=== PATIENT | female | born 1960 | race Caucasian/White ===

== ENCOUNTER → 2016-10-19 08:40 | Outpatient (CLI) | payer MEDICAID ==
[~2016-10-19 08:40] MED LIST: AMBIEN10 MG PO; HYDROCODONE-APA1 TAB PO; KLONOPIN0.5 MG PO; OYSCO 500+D TAB1 TAB PO; PROTONIX40 MG PO
[2016-10-19 09:58] LABS: BASOPHILS 1.1 % (0.0-2.0); EOSINOPHILS 2.3 % (0-7); HEMATOCRIT 43.8 % (36.0-48.0); IMMATURE GRANULOCYTES 0.2 % (0-5); MCH 31.8 pg (26.0-34.0); MCHC 34.2 g/dL (31.0-37.0); MCV 92.8 fL (80.0-100.0); MEAN PLATELET VOLUME 9.9 fL (7.4-10.4); MONOCYTES 10.4 % (2-11); RBC 4.72 10x6/uL (4.00-5.40); RDW 12.3 % (11.5-14.5); WBC 4.7 10x3/uL (4.8-10.8)
[2016-10-19 10:13] LABS: PLATELET COUNT 248 10x3/uL (130-400)
[2016-10-19 10:24] LABS: ALBUMIN 4.1 g/dL (3.4-5.0); ALKALINE PHOSPHATASE 82 U/L (46-116); ALT (SGPT) 64 U/L (10-68); BILIRUBIN - TOTAL 0.42 mg/dL (0.2-1.3); CALC OSMOLALITY 280 mosm/kg (275-300); CALCIUM 8.6 mg/dL (8.5-10.1); CARBON DIOXIDE 28.6 mmol/L (21.0-32.0); CHLORIDE - SERUM 104 mmol/L (98-107); CREATININE - SERUM 0.8 mg/dL (0.6-1.3); GLUCOSE 104 mg/dL (74-106); POTASSIUM - SERUM 4.6 mmol/L (3.5-5.1); PROTEIN - SERUM 7.2 g/dL (6.4-8.2); SODIUM 141 mmol/L (136-145); UREA NITROGEN 13 mg/dL (7-18); eGFR NON AFRICAN AMERICAN 78 mL/min (90-120)
[2016-11-19 06:50] VITALS: BMI 23.4
== END | disposition home or self-care (01) ==
LOC: D.RAD 08:30 → D.US 09:00 → D.NM 09:30
PROVIDERS: Internal Medicine Gastroenterology
DX: R10.11 Right upper quadrant pain (principal); R11.2 Nausea with vomiting, unspecified; R53.83 Other fatigue; R94.5 Abnormal results of liver function studies

== ENCOUNTER 2016-11-19 06:04 | Day surgery (SDC) | payer MEDICAID ==
[~2016-11-19] VITALS: Ht 160 cm; Wt 59.9 kg
[~2016-11-19 06:04] MED LIST changes: -HYDROCODONE-APA1 TAB PO
[2016-11-19 06:45] LABS: BASOPHILS 0.7 % (0.0-2.0); EOSINOPHILS 4.4 % (0-7); HEMATOCRIT 44.1 % (36.0-48.0); HEMOGLOBIN 14.9 g/dL (12-16); IMMATURE GRANULOCYTES 0.2 % (0-5); MCH 31.6 pg (26.0-34.0); MCHC 33.8 g/dL (31.0-37.0); MCV 93.6 fL (80.0-100.0); MONOCYTES 13.3 % (2-11); NEUTROPHILS 46.4 % (40-80); PLATELET COUNT 223 10x3/uL (130-400); RBC 4.71 10x6/uL (4.00-5.40); RDW 12.3 % (11.5-14.5); WBC 4.1 10x3/uL (4.8-10.8)
[2016-11-19 06:50] VITALS: BP 125/75; Ht 160 cm; Wt 59.9 kg
[2016-11-19 07:01] LABS: CALC OSMOLALITY 279 mosm/kg (275-300); CARBON DIOXIDE 26.6 mmol/L (21.0-32.0); CHLORIDE - SERUM 105 mmol/L (98-107); CREATININE - SERUM 0.7 mg/dL (0.6-1.3); GLUCOSE 107 mg/dL (74-106); POTASSIUM - SERUM 3.6 mmol/L (3.5-5.1); SODIUM 141 mmol/L (136-145); UREA NITROGEN 9 mg/dL (7-18); eGFR NON AFRICAN AMERICAN > 90 mL/min (90-120)
[2016-11-19] MEDS ORDERED: HYDROCODONE-APA1 TAB PO (10:35)
--- NOTE | 2016-11-19 13:21 | OP ---
PATIENT NAME: KORIN JOSE MEDICAL RECORD: [id number] :56 LOCATION:D.OPS ADMISSION DATE: SURGEON: FIDEL HERNANDEZ MD DATE OF OPERATION: 11/19/2016 PREOPERATIVE DIAGNOSES: 1. Biliary dyskinesia. 2. Tobacco dependence syndrome. POSTOPERATIVE DIAGNOSES: 1. Biliary dyskinesia. 2. Tobacco dependence syndrome. PROCEDURE: Laparoscopic cholecystectomy. SURGEON: Fidel Hernandez MD REPORT OF PROCEDURE: The patient's abdomen was prepped and draped in sterile fashion. A cutdown was made on the superior aspect of the umbilicus, 0 Vicryls were placed in the fascia bilaterally and the fascia was incised with 15-blade. I then bluntly entered the peritoneal cavity and placed a 12-mm Brandy port. Under direct visualization, a 5 mm trocar was placed in the epigastrium and two more 5 mm trocars were placed in the right subcostal region. The gallbladder had no sign of inflammatory changes. The cystic artery and cystic duct were dissected free. These were clipped proximally and distally and ligated in standard fashion. The gallbladder was then taken off the liver bed using electrocautery and placed into the right upper quadrant. Any bleeding from the liver bed was then treated with electrocautery. The ports and insufflation were then removed and the gallbladder was taken out through the umbilicus. The umbilical fascia was closed with interrupted 0 Vicryls times 3. The wounds were irrigated out with normal saline and infused with 10 mL of 0.25% Marcaine with epinephrine. The skin incisions were all closed with subcutaneous 5-0 Monocryl and dressed appropriately. COMPLICATIONS: None. CONDITION: Stable. ANESTHESIA: General endotracheal and local. BLOOD LOSS: Minimal. TRANSINT:[id number] Voice Confirmation ID: [id number] DOCUMENT ID: [id number] FIDEL HERNANDEZ MD at 1321 CC: JERAD CLAYTON MD and KIYA DELUCA DO [id number] DICTATION DATE: 11/19/16 1041 AMMONIUM HYDROXIDE OPERATOR: 11/19/16 1237 [facility] [address] [place] [address]
== END 2016-11-19 12:20 | disposition home or self-care (01) ==
LOC: D.OPS 06:04 → D.PAN 16:00 → D.OPS 16:00
PROVIDERS: Surgery
DX: K82.8 Other specified diseases of gallbladder (principal); F17.200 Nicotine dependence, unspecified, uncomplicated

== ENCOUNTER 2017-02-06 09:22 | Emergency (ER) | payer OTHER ==
[2016-11-19 06:50] VITALS: BMI 23.4
[~2017-02-06 09:22] MED LIST changes: +HYDROCODONE-APA1 TAB PO
[2017-02-06 09:48] LABS: BASOPHILS 0.8 % (0-2); EOSINOPHILS 2.4 % (0-7); HEMATOCRIT 45.2 % (36.0-48.0); HEMOGLOBIN 15.5 g/dL (12-16); IMMATURE GRANULOCYTES 0.2 % (0-5); LYMPHOCYTES 28.3 % (15-50); MCH 31.8 pg (26.0-34.0); MCHC 34.3 g/dL (31.0-37.0); MCV 92.6 fL (80.0-100.0); MEAN PLATELET VOLUME 9.7 fL (7.4-10.4); MONOCYTES 12.4 % (2-11); NEUTROPHILS 55.9 % (40-80); PLATELET COUNT 263 10x3/uL (130-400); RBC 4.88 10x6/uL (4.00-5.40); RDW 12.9 % (11.5-14.5); WBC 6.4 10x3/uL (4.8-10.8)
[2017-02-06 09:57] LABS: AMORPHOUS SEDIMENT >1+ /lpf (NONE SEEN); APPEARANCE SLT CLOUDY (CLEAR); BACTERIA MODERATE /hpf (NONE SEEN); BILIRUBIN NEGATIVE (NEGATIVE); COLOR YELLOW (YELLOW); EPITHELIAL CELLS 0-5 /hpf (0-5); GLUCOSE NEGATIVE (NEGATIVE); KETONE SMALL mg/dL (NEGATIVE); LEUKOCYTE ESTERASE NEGATIVE (NEGATIVE); MUCUS <1+ /lpf (NONE SEEN); NITRITE NEGATIVE (NEGATIVE); PROTEIN NEGATIVE (NEGATIVE); RED CELLS - URINE 25-50 /hpf (0-5); UROBILINOGEN NORMAL (NORMAL); WHITE CELLS - URINE 0-5 /hpf (0-5)
[2017-02-06 10:00] LABS: ALBUMIN 4.2 g/dL (3.4-5.0); ANION GAP 20.3 mmol/L (8-16); BILIRUBIN - TOTAL 0.62 mg/dL (0.2-1.3); CALCIUM 9.8 mg/dL (8.5-10.1); CARBON DIOXIDE 21.2 mmol/L (21.0-32.0); POTASSIUM - SERUM 3.5 mmol/L (3.5-5.1); PROTEIN - SERUM 7.8 g/dL (6.4-8.2)
[2017-02-06 10:04] LABS: HCG SERUM NEGATIVE (NEGATIVE)
== END 2017-02-06 12:03 | disposition home or self-care (01) ==
LOC: D.ER 09:22
PROVIDERS: Emergency Medicine
DX: N23 Unspecified renal colic (principal); F17.200 Nicotine dependence, unspecified, uncomplicated

== ENCOUNTER 2017-02-11 11:27 | Emergency (ER) | payer OTHER ==
[2016-11-19 06:50] VITALS: BMI 23.4
[2017-02-11 12:17] LABS: BASOPHILS 0.7 % (0-2); EOSINOPHILS 0.9 % (0-7); HEMATOCRIT 42.2 % (36.0-48.0); HEMOGLOBIN 14.4 g/dL (12-16); LYMPHOCYTES 23.1 % (15-50); MCH 31.9 pg (26.0-34.0); MCHC 34.1 g/dL (31.0-37.0); MCV 93.4 fL (80.0-100.0); MEAN PLATELET VOLUME 9.4 fL (7.4-10.4); MONOCYTES 6.9 % (2-11); NEUTROPHILS 68.4 % (40-80); PLATELET COUNT 246 10x3/uL (130-400); RBC 4.52 10x6/uL (4.00-5.40); WBC 4.5 10x3/uL (4.8-10.8)
[2017-02-11 12:35] LABS: ALBUMIN 3.5 g/dL (3.4-5.0); ALKALINE PHOSPHATASE 85 U/L (46-116); ALT (SGPT) 53 U/L (10-68); CALC OSMOLALITY 283 mosm/kg (275-300); CARBON DIOXIDE 27.6 mmol/L (21.0-32.0); CHLORIDE - SERUM 104 mmol/L (98-107); GLUCOSE 159 mg/dL (74-106); POTASSIUM - SERUM 3.3 mmol/L (3.5-5.1); SODIUM 141 mmol/L (136-145); UREA NITROGEN 12 mg/dL (7-18); eGFR NON AFRICAN AMERICAN 60 mL/min (90-120)
[2017-02-11 12:41] LABS: CREATINE KINASE 84 UL (21-215); TROPONIN-I < 0.017 ng/mL (0.000-0.060)
[2017-02-11 14:11] LABS: APPEARANCE CLEAR (CLEAR); BILIRUBIN NEGATIVE (NEGATIVE); COLOR YELLOW (YELLOW); GLUCOSE NEGATIVE (NEGATIVE); KETONE NEGATIVE (NEGATIVE); LEUKOCYTE ESTERASE NEGATIVE (NEGATIVE); NITRITE NEGATIVE (NEGATIVE); PROTEIN NEGATIVE (NEGATIVE); SPECIFIC GRAVITY 1.015 (1.005-1.020); UROBILINOGEN NORMAL (NORMAL)
== END 2017-02-11 15:45 | disposition home or self-care (01) ==
LOC: D.ER 11:27
PROVIDERS: Emergency Medicine; Nurse Practitioner Family
DX: R53.1 Weakness (principal); R07.89 Other chest pain; F17.200 Nicotine dependence, unspecified, uncomplicated

== ENCOUNTER → 2017-02-23 19:35 | Outpatient (CLI) | payer OTHER ==
[2016-11-19 06:50] VITALS: BMI 23.4
== END | disposition home or self-care (01) ==
LOC: D.SLEEP 19:35
DX: G47.33 Obstructive sleep apnea (adult) (pediatric) (principal)

== ENCOUNTER 2018-09-26 18:25 | Emergency (ER) | payer OTHER ==
[~2018-09-26] VITALS: Ht 160 cm; Wt 61.4 kg
[2018-09-26 18:35] VITALS: Ht 160 cm; Wt 61.4 kg
[2018-09-26] MEDS ORDERED: TORADOL10 MG PO (21:26)
[2018-09-26 22:07] VITALS: BP 150/100
== END 2018-09-26 22:11 | disposition home or self-care (01) ==
LOC: D.ER 18:25
DX: S60.212A Contusion of left wrist, initial encounter (principal); S30.0XXA Contusion of lower back and pelvis, initial encounter; S40.012A Contusion of left shoulder, initial encounter; W18.30XA Fall on same level, unspecified, initial encounter; Y93.89 Activity, other specified; Y92.89 Other specified places as the place of occurrence of the external cause

== ENCOUNTER → 2018-09-29 15:24 | Outpatient (CLI) | payer OTHER ==
[2018-09-26 18:35] VITALS: BMI 23.9
[~2018-09-29 15:24] MED LIST changes: +TORADOL10 MG PO
== END | disposition home or self-care (01) ==
LOC: D.MRI 15:24
DX: M54.5 Low back pain (principal)

== ENCOUNTER → 2018-10-09 14:50 | Outpatient (CLI) | payer OTHER ==
[2018-09-26 18:35] VITALS: BMI 23.9
== END | disposition home or self-care (01) ==
LOC: D.RAD 14:50
DX: M54.2 Cervicalgia (principal)

== ENCOUNTER → 2019-01-10 08:30 | Outpatient (CLI) | payer OTHER ==
[2018-09-26 18:35] VITALS: BMI 23.9
[~2019-01-10 08:30] MED LIST changes: +LIPITOR10 MG PO; +METOPROLOL TART25 MG PO; +ULTRAM50 MG PO
== END | disposition home or self-care (01) ==
LOC: D.MRI 08:30
PROVIDERS: ATTEND Pain Medicine Interventional Pain Medicine
DX: M47.892 Other spondylosis, cervical region (principal); M46.82 Other specified inflammatory spondylopathies, cervical region

== ENCOUNTER 2019-01-10 13:07 | Observation (INO) | payer OTHER ==
[~2019-01-10] VITALS: Ht 160 cm; Wt 62.7 kg
[2019-01-10 13:07] VITALS: BP 123/81
[~2019-01-10 13:07] MED LIST changes: -LIPITOR10 MG PO; -METOPROLOL TART25 MG PO; -ULTRAM50 MG PO
[2019-01-10 13:44] LABS: BASOPHILS 0.7 % (0-2); EOSINOPHILS 1.6 % (0-7); HEMATOCRIT 43.4 % (36.0-48.0); HEMOGLOBIN 15.3 g/dL (12-16); IMMATURE GRANULOCYTES 0.1 % (0-5); LYMPHOCYTES 25.6 % (15-50); MCH 32.1 pg (26.0-34.0); MCHC 35.3 g/dL (31.0-37.0); MEAN PLATELET VOLUME 9.4 fL (7.4-10.4); MONOCYTES 8.1 % (2-11); NEUTROPHILS 63.9 % (40-80); PLATELET COUNT 218 10x3/uL (130-400); RBC 4.77 10x6/uL (4.00-5.40); RDW 12.7 % (11.5-14.5); WBC 6.7 10x3/uL (4.8-10.8)
[2019-01-10 13:54] LABS: ALKALINE PHOSPHATASE 86 U/L (46-116); ALT (SGPT) 27 U/L (10-68); BILIRUBIN - TOTAL 0.41 mg/dL (0.2-1.3); CALC OSMOLALITY 281 mosm/kg (275-300); CALCIUM 9.3 mg/dL (8.5-10.1); CARBON DIOXIDE 22.6 mmol/L (21.0-32.0); CHLORIDE - SERUM 103 mmol/L (98-107); CREATININE - SERUM 0.9 mg/dL (0.6-1.3); GLUCOSE 123 mg/dL (74-106); POTASSIUM - SERUM 3.6 mmol/L (3.5-5.1); PROTEIN - SERUM 7.4 g/dL (6.4-8.2); SODIUM 141 mmol/L (136-145); UREA NITROGEN 13 mg/dL (7-18); eGFR NON AFRICAN AMERICAN 68 mL/min (90-120)
[2019-01-10 14:00] VITALS: BP 158/84
[2019-01-10 14:01] LABS: APTT 21.8 SECONDS (22.8-39.4); PROTIME 12.7 SECONDS (11.6-15.0)
[2019-01-10 14:05] LABS: CKMB 1.9 U/L (0.0-3.6); CREATINE KINASE 120 UL (21-215); MAGNESIUM - SERUM 1.6 mg/dL (1.8-2.4); TROPONIN-I < 0.017 ng/mL (0.000-0.060)
[2019-01-10 14:30] VITALS: BP 148/74
--- NOTE | 2019-01-10 15:20 | NUR ---
NEW ADMIT FROM ER. SIMONAINTED TO ROOM. CALL LIGHT IN REACH. WILL CONT. PLAN OF CARE.
[2019-01-10] MEDS ORDERED: METOPROLOL TART25 MG PO (15:22)
[2019-01-10] MEDS ORDERED: ULTRAM50 MG PO (15:25)
[2019-01-10] MEDS ORDERED: LIPITOR10 MG PO (15:25)
[2019-01-10 15:41] VITALS: BP 141/82; BMI 24.5
--- NOTE | 2019-01-10 19:39 | NUR ---
RESUMING PATIENT CARE. PATIENT IS ALERT AND ORIENTED, RESTING COMFORTABLY IN BED. RESPIRATIONS ARE EVEN AND UNLABORED. NEEDS MET. NO S/S OF DISTRESS. NO C/O PAIN. CALL LIGHT WITHIN REACH. WILL CPOC.
[2019-01-10 20:00] VITALS: BP 103/60
[2019-01-10 22:42] VITALS: BP 164/97
[2019-01-11 04:30] VITALS: BP 112/67
--- NOTE | 2019-01-11 07:25 | NUR ---
RECEIVED PT IN BED AAOX4 RESP UNLABORED SKIN W/D COLOR WNL DENIES ANY PAIN OR NEEDS AT THIS TIME STATES FEELS MUCH BETTER THIS MORNING
[2019-01-11 08:43] VITALS: BP 125/79
[2019-01-11 11:40] VITALS: BP 114/69; Ht 160 cm; Wt 62.7 kg
--- NOTE | 2019-01-11 12:15 | NUR ---
REVIEWED DISCHARGE INSTRUCTIONS WITH PT STATES UNDERSTANDING COPY GIVEN DCD SALINE LOCK TO LEFT HAND WITH IV CATHETER INTACT SITE FREE OF REDNESS OR EDEMA PT DISCHARGED HOME IN STABLE CONDITION WITH ALL PERSONAL BELONGINGS LEFT VIA W/C
--- NOTE | 2019-01-12 07:58 | MORECARE ---
CASE MANAGEMENT DISCHARGE SUMMARY PATIENT: KORIN JOSE UNIT: [id number] ADM DATE: 01/10/19 AGE: 58 : 56 SEX: F ROOM/BED: D.0314 AUTHOR: KULWANT LAI PHYSICIAN: REFERRING PHYSICIAN: DANIEL PEREZ MD DATE OF SERVICE: 01/12/19 Discharge Plan Patient Name: KORIN JOSE [facility] [facility] 1960 Planned Disposition: Home Anticipated Discharge Date: 01/11/19 Discharge Date: 01/11/2019 Expected LOS: 1 Initial Reviewer: [email or web address] Initial Review Date: 01/12/2019 Generated: 01/12/19 8:58 am Patient Name: KORIN JOSE Page [id number] at 0758 All edits/amendments must be made on the electronic document DICTATION DATE: 01/12/19 0757 GRILL ASSOCIATE: JOSE 01/12/19 0757 RPT#: [id number] DC DATE:01/11/19 STATUS: DIS IN [facility] [address] [place] [address] END OF REPORT
== END 2019-01-11 12:15 | disposition home or self-care (01) ==
LOC: D.ER 13:07 → D.M2 14:07 → OBSVTIME 14:07 → D.M2 14:07
PROVIDERS: Family Medicine; ADMIT Internal Medicine Nephrology; ATTEND Internal Medicine Nephrology
DX: R00.2 Palpitations (principal); I10 Essential (primary) hypertension; F41.9 Anxiety disorder, unspecified; R07.9 Chest pain, unspecified

== ENCOUNTER → 2019-07-17 11:30 | Outpatient (CLI) | payer OTHER ==
[2019-01-11 11:40] VITALS: BMI 24.5
[~2019-07-17 11:30] MED LIST changes: +LIPITOR10 MG PO; +METOPROLOL TART25 MG PO; +ULTRAM50 MG PO
== END | disposition home or self-care (01) ==
LOC: D.MAMMO 11:30
PROVIDERS: ATTEND Family Medicine
DX: Z12.31 Encounter for screening mammogram for malignant neoplasm of breast (principal)

== ENCOUNTER 2020-10-20 13:22 | Emergency (ER) | payer MEDICAID ==
[~2020-10-20] VITALS: Ht 160 cm; Wt 65.9 kg
[2020-10-20 13:27] VITALS: Ht 160 cm; Wt 65.9 kg
[2020-10-20] MEDS ORDERED: HYDROCODONE-AC1 EAC2 PO (14:42)
[2020-10-20 15:52] VITALS: BP 166/76
== END 2020-10-20 15:00 | disposition home or self-care (01) ==
LOC: D.ER 13:22
DX: M79.671 Pain in right foot (principal); S90.31XA Contusion of right foot, initial encounter; X58.XXXA Exposure to other specified factors, initial encounter

== ENCOUNTER 2020-11-10 14:19 | Inpatient (IN) | payer MEDICAID ==
[~2020-11-10] VITALS: Ht 160 cm; Wt 70.5 kg
[~2020-11-10 14:19] MED LIST changes: +HYDROCODONE-AC1 EAC2 PO
[2020-11-10] MEDS ORDERED: BAYER CHEWABLE81 MG PO (14:30)
[2020-11-10] MEDS ORDERED: BACTRIM DS TAB1 EAC1 PO (14:30)
[2020-11-10 15:08] LABS: BASOPHILS 0.9 % (0-2); EOSINOPHILS 3.7 % (0-7); HEMATOCRIT 44.9 % (36.0-48.0); IMMATURE GRANULOCYTES 0.2 % (0-5); LYMPHOCYTE ABS# 1.74 10x3/uL (1.18-3.74); LYMPHOCYTES 37.7 % (15-50); MCH 30.7 pg (26.0-34.0); MCHC 33.4 g/dL (31.0-37.0); MCV 91.8 fL (80.0-100.0); MEAN PLATELET VOLUME 9.2 fL (7.4-10.4); MONOCYTES 9.7 % (2-11); NEUTROPHIL ABS# 2.21 10x3/uL (1.56-6.13); NEUTROPHILS 47.8 % (40-80); RBC 4.89 10x6/uL (4.00-5.40); RDW 12.8 % (11.5-14.5); WBC 4.6 10x3/uL (4.8-10.8)
[2020-11-10 15:11] LABS: PLATELET COUNT 299 10x3/uL (130-400)
[2020-11-10 15:16] LABS: APTT 23.5 SECONDS (22.8-39.4); INR 1.1 (0.85-1.17); PROTIME 13.2 SECONDS (11.6-15.0)
[2020-11-10 15:28] LABS: ANION GAP 16.4 mmol/L (8-16); CALCIUM 9.3 mg/dL (8.5-10.1); CARBON DIOXIDE 24.7 mmol/L (21.0-32.0); POTASSIUM - SERUM 4.1 mmol/L (3.5-5.1)
[2020-11-10 15:35] LABS: ALBUMIN 3.7 g/dL (3.4-5.0); BILIRUBIN - TOTAL 0.23 mg/dL (0.2-1.3); PROTEIN - SERUM 7.8 g/dL (6.4-8.2)
[2020-11-10 17:56] VITALS: BP 130/50; Ht 160 cm; Wt 70.5 kg
--- NOTE | 2020-11-10 18:01 | NUR ---
RECIEVED PATIENT FROM ER. FREE FROM SIGNS OF DISTRESS. CALL LIGHT IN REACH. BED LOW POSITION, DENIES NEEDS AT THIS TIME. IV INFUSING PER MAR. ALERT AND ORIENTED X4. WILL CONTINUE TO MONITOR.
[2020-11-10 20:00] VITALS: BP 99/61
--- NOTE | 2020-11-10 23:59 | NUR ---
I have reviewed this patient and I concur with the Shift Assessment completed by the Licensed Practical Nurse today this shift.
[2020-11-11] VITALS: BP 89/53
[2020-11-11 04:00] VITALS: BP 89/8590
[2020-11-11 06:46] LABS: BASOPHILS 0.7 % (0-2); EOSINOPHILS 7.9 % (0-7); HEMATOCRIT 40.2 % (36.0-48.0); HEMOGLOBIN 13.4 g/dL (12-16); IMMATURE GRANULOCYTES 0.2 % (0-5); LYMPHOCYTE ABS# 1.69 10x3/uL (1.18-3.74); LYMPHOCYTES 41.9 % (15-50); MCH 30.7 pg (26.0-34.0); MCHC 33.3 g/dL (31.0-37.0); MCV 92.2 fL (80.0-100.0); MEAN PLATELET VOLUME 9.3 fL (7.4-10.4); MONOCYTES 13.4 % (2-11); NEUTROPHIL ABS# 1.44 10x3/uL (1.56-6.13); NEUTROPHILS 35.9 % (40-80); PLATELET COUNT 271 10x3/uL (130-400); RBC 4.36 10x6/uL (4.00-5.40)
[2020-11-11 06:50] LABS: ALBUMIN 2.9 g/dL (3.4-5.0); ANION GAP 15.7 mmol/L (8-16); CALCIUM 8.3 mg/dL (8.5-10.1); CARBON DIOXIDE 22.8 mmol/L (21.0-32.0); MAGNESIUM - SERUM 1.9 mg/dL (1.8-2.4); POTASSIUM - SERUM 4.5 mmol/L (3.5-5.1)
[2020-11-11 07:03] LABS: BILIRUBIN - TOTAL 0.1 mg/dL (0.2-1.3)
--- NOTE | 2020-11-11 07:30 | NUR ---
REC'D IN BED AWAKE. RESP EVEN AND UNLABORED WITH NO DISTRESS NOTED. CAN EXPRESS NEEDS AND WANTS. NO C/O NOTED OR VOICED. ASSESSMENT COMPLETED. C/L IN REACH AT BEDSIDE.
[2020-11-11 08:30] VITALS: BP 96/59
--- NOTE | 2020-11-11 10:30 | NUR ---
WAS MEDICATED WITH NORCO PER ORDERS FOR C/O RIGHT FOOT PAIN RATING 8/10 ON PAIN SCALE.
--- NOTE | 2020-11-11 12:16 | NUR ---
I have reviewed this patient and I concur with the Shift Assessment completed by the Licensed Practical Nurse today this shift.
[2020-11-11 13:30] VITALS: BP 96/52
--- NOTE | 2020-11-11 13:32 | NUR ---
WAS MEDICATED WT MORPHINE FOR C/O PAIN RATING 9/10 ON PAIN SCALE. C/L IN REACH AT BEDSIDE.
[2020-11-11 16:43] VITALS: BP 101/61
[2020-11-11 20:00] VITALS: BP 90/52
--- NOTE | 2020-11-12 03:40 | NUR ---
PATIENT'S PAIN WAS MANAGED WITH THE PRESCRIBED PAIN MEDICATION, SHE WAS COMPLIANT WITH THE IS, SHE APPEARED TO REST WELL THROUGHOUT THE NIGHT
[2020-11-12 04:00] VITALS: BP 92/52
[2020-11-12 06:40] LABS: BASOPHILS 1.3 % (0-2); EOSINOPHILS 6.6 % (0-7); HEMATOCRIT 39.1 % (36.0-48.0); HEMOGLOBIN 12.8 g/dL (12-16); IMMATURE GRANULOCYTES 0.3 % (0-5); LYMPHOCYTE ABS# 1.71 10x3/uL (1.18-3.74); LYMPHOCYTES 45.1 % (15-50); MCH 30.5 pg (26.0-34.0); MCHC 32.7 g/dL (31.0-37.0); MCV 93.3 fL (80.0-100.0); MEAN PLATELET VOLUME 9.3 fL (7.4-10.4); MONOCYTES 11.6 % (2-11); NEUTROPHIL ABS# 1.33 10x3/uL (1.56-6.13); NEUTROPHILS 35.1 % (40-80); PLATELET COUNT 261 10x3/uL (130-400); RBC 4.19 10x6/uL (4.00-5.40); RDW 13.1 % (11.5-14.5); WBC 3.8 10x3/uL (4.8-10.8)
[2020-11-12 07:05] LABS: ALBUMIN 2.8 g/dL (3.4-5.0); ANION GAP 14.3 mmol/L (8-16); BILIRUBIN - TOTAL 0.16 mg/dL (0.2-1.3); CALCIUM 8.5 mg/dL (8.5-10.1); CARBON DIOXIDE 22.9 mmol/L (21.0-32.0); CREATININE - SERUM 0.9 mg/dL (0.6-1.3); POTASSIUM - SERUM 4.2 mmol/L (3.5-5.1); PROTEIN - SERUM 6.1 g/dL (6.4-8.2)
[2020-11-12 08:55] VITALS: BP 111/70
[2020-11-12 13:07] VITALS: BP 123/64
[2020-11-12] MEDS ORDERED: HYDROCODON-ACE1 EAC7 (15:39)
[2020-11-12] MEDS ORDERED: CLEOCIN HCL300 MG PO (15:40)
--- NOTE | 2020-11-12 16:28 | NUR ---
DC HOME AT THIS TIME WITH ALL PERSONAL BELONGING ALSO VOICES UNDERSTANDING OF DC INSTRUCTION. STABLE UPON DEPARTURE.
== END 2020-11-12 16:28 | disposition home or self-care (01) | DRG 603 ==
LOC: D.ER 14:19 → OBSVTIME 16:21 → D.MS 16:21
PROVIDERS: Family Medicine; ADMIT Family Medicine; ATTEND Family Medicine
DX: L03.115 Cellulitis of right lower limb (principal); W55.19XD Other contact with horse, subsequent encounter; S90.31XD Contusion of right foot, subsequent encounter

== ENCOUNTER 2020-12-04 10:17 | Day surgery (SDC) | payer MEDICAID ==
[~2020-12-04] VITALS: Ht 160 cm; Wt 64.9 kg
[~2020-12-04 10:17] MED LIST changes: +BACTRIM DS TAB1 EAC1 PO; +BAYER CHEWABLE81 MG PO; +CELEBREX200 MG PO; +CLEOCIN HCL300 MG PO; +HYDROCODON-ACE1 EAC7; +TOPROL XL50 MG PO; +ZOLOFT100 MG PO
[2020-12-04 10:47] LABS: CALC OSMOLALITY 281 mosm/kg (275-300); CALCIUM 9.1 mg/dL (8.5-10.1); CHLORIDE - SERUM 107 mmol/L (98-107); CREATININE - SERUM 0.8 mg/dL (0.6-1.3); GLUCOSE 129 mg/dL (74-106); POTASSIUM - SERUM 4.3 mmol/L (3.5-5.1); SODIUM 140 mmol/L (136-145); UREA NITROGEN 14 mg/dL (7-18); eGFR NON AFRICAN AMERICAN 77 mL/min (90-120)
[2020-12-04 10:49] LABS: BASOPHILS 0.6 % (0-2); HEMATOCRIT 43.5 % (36.0-48.0); HEMOGLOBIN 14.5 g/dL (12-16); IMMATURE GRANULOCYTES 0.3 % (0-5); LYMPHOCYTE ABS# 1.77 10x3/uL (1.18-3.74); LYMPHOCYTES 28.1 % (15-50); MCHC 33.3 g/dL (31.0-37.0); MCV 92.9 fL (80.0-100.0); MEAN PLATELET VOLUME 9.7 fL (7.4-10.4); MONOCYTES 10.9 % (2-11); NEUTROPHILS 57.1 % (40-80); PLATELET COUNT 246 10x3/uL (130-400); RBC 4.68 10x6/uL (4.00-5.40); RDW 13.5 % (11.5-14.5); WBC 6.3 10x3/uL (4.8-10.8)
[2020-12-04 11:01] VITALS: BP 145/78; Ht 160 cm; Wt 64.9 kg
--- NOTE | 2020-12-04 12:08 | NUR ---
REGLAN NOT GIVEN DUE TO RESTLESS LEG
--- NOTE | 2020-12-04 15:27 | NUR ---
ARRIVED VIA RWEST BETHEL POSTOP WITH RIGHT FOOT DRESSING WITH ELE WOUND VAC. DRESSING DRY AND INTACT. SPOUSE AT BEDSIDE. PATIENT AWAKE AND ORIENTED ON ARRIVAL, DR RIVER AT BEDSIDE AND REVEIWED ELE WITH . CO PAIN, WILL GIVE PAIN MEDICINE.IV INFUSING AT KVO
--- NOTE | 2020-12-04 15:45 | NUR ---
PAIN IMPROVING, STATES LEVEL AT 3. DRESSING DRY/INTACT. PROVEENA WOUND VAC INTACT. IV REMOVED WITH CATH INTACT
--- NOTE | 2020-12-04 16:49 | NUR ---
1610 ASSISTED PATIENT IN GETTING DRESSED, DISCHARGE INSTRUCTIONS REVIEWED WITH PATIENT. DRESSING REMAINS CLEAN,DRY AND INTACT W ELE WOUND VAC IN PLACE. DISCHARGED VIA W SPOUSE
--- NOTE | 2020-12-08 17:52 | OP ---
PATIENT NAME: KORIN GIRALDO MEDICAL RECORD: [id number] :56 LOCATION:DKevinOPS ADMISSION DATE: SURGEON: SOFYA RIVER MD DATE OF OPERATION: 12/04/2020 PREOPERATIVE DIAGNOSES: 1. Right foot hematoma. 2. Open wound, right foot. POSTOPERATIVE DIAGNOSES: 1. Right foot hematoma. 2. Open wound, right foot. PROCEDURE PERFORMED: 1. Irrigation and debridement of right foot wound (skin and subcutaneous tissue). 2. Application of Kerecis graft. 3. Application of wound VAC, right foot (less than 50 cm-squared). INDICATIONS FOR THE PROCEDURE: Ms. Giraldo is a 60-year-old female who sustained a hematoma to her left foot approximately 4 weeks ago when she was stepped on by a horse. She developed a large hematoma over the dorsal foot, which eventually erupted through the skin and she was treated with IV and p.o. antibiotics for cellulitis. She still has a residual open wound over the dorsal foot. We have been performing dressing changes, but it has been slow to heal. She has elected to proceed with surgery for I&D of the wound with placement of Kerecis graft and wound VAC. Risks, benefits and alternatives of surgery were discussed with the patient and consent was obtained. DESCRIPTION OF THE PROCEDURE: The patient was met in the holding area where her identity and confirmation of procedure was performed. The right lower extremity was marked. She was taken to the operating room where she was placed supine on the operating table, and anesthesia was administered, tourniquet was applied to the right thigh and the right leg was prepped and draped in a sterile fashion. The patient received preoperative antibiotics and timeout was performed prior to initiating the case. On initiation of the case, the wound was inspected and noted to have good granulation tissue with just some dry eschar around the edges. The central area was granulating, but was also dry. Eschar was debrided with forceps and scissors. The central tissues were debrided sharply with the scalpel. A 22-gauge needle was also used through the central aspect of the wound to fenestrate the skin and allow for more bleeding. The wound was irrigated thoroughly with saline. Wound measured 1.2 cm in diameter. A Kerecis graft was then applied and sutured into place. This was covered with a wound VAC, noted to have good compression. The wound VAC was applied and this completed our procedure. This was covered with a sterile dressing. The patient was turned back over to anesthesia where she was awakened and taken to recovery room in stable condition. POSTOPERATIVE PLAN: The patient is going to return home with her family today. She needs to keep the wound VAC and dressing in place until followup in clinic on Tuesday, at which time I will remove the wound VAC in order to begin daily dressing changes. COMPLICATIONS: None. OPERATIVE REPORT [id number] KORIN GIRALDO ESTIMATED BLOOD LOSS: 5 mL. ANESTHESIA: Conscious sedation. TRANSINT:[id number] Voice Confirmation ID: [id number] DOCUMENT ID: [id number] SOFYA RIVER MD at 1752 CC: [id number] DICTATION DATE: 12/04/20 1524 CONTINUOUS DRYOUT OPERATOR: 12/04/20 1701 [facility] 12/04/[address] [address]
== END 2020-12-04 16:10 | disposition home or self-care (01) ==
LOC: D.OPS 10:17
PROVIDERS: Anesthesiology; ATTEND Orthopaedic Surgery
DX: M79.671 Pain in right foot (principal); L03.115 Cellulitis of right lower limb; S91.301D Unspecified open wound, right foot, subsequent encounter; X58.XXXD Exposure to other specified factors, subsequent encounter

== ENCOUNTER 2020-12-18 17:17 | Emergency (ER) | payer BC ==
[~2020-12-18] VITALS: Ht 160 cm; Wt 69.1 kg
[2020-12-18 17:24] VITALS: Ht 160 cm; Wt 69.1 kg
[2020-12-18 17:43] LABS: BILIRUBIN NEGATIVE (NEGATIVE); KETONE NEGATIVE (NEGATIVE); NITRITE NEGATIVE (NEGATIVE); UROBILINOGEN NORMAL mg/dL (< 2)
[2020-12-18 17:51] LABS: BACTERIA FEW HPF (NONE SEEN); SQUAMOUS EPITHELIAL 0-5 HPF (0-4); WHITE CELLS - URINE 0-5 HPF (0-4)
[2020-12-18 18:35] LABS: BASOPHILS 0.5 % (0-2); EOSINOPHILS 1.4 % (0-7); HEMATOCRIT 43.6 % (36.0-48.0); HEMOGLOBIN 14.9 g/dL (12-16); IMMATURE GRANULOCYTES 0.2 % (0-5); LYMPHOCYTE ABS# 2.06 10x3/uL (1.18-3.74); LYMPHOCYTES 20.4 % (15-50); MCH 31.3 pg (26.0-34.0); MCHC 34.2 g/dL (31.0-37.0); MCV 91.6 fL (80.0-100.0); MEAN PLATELET VOLUME 9.7 fL (7.4-10.4); MONOCYTES 8.2 % (2-11); NEUTROPHIL ABS# 6.99 10x3/uL (1.56-6.13); NEUTROPHILS 69.3 % (40-80); PLATELET COUNT 244 10x3/uL (130-400); RBC 4.76 10x6/uL (4.00-5.40); RDW 13.4 % (11.5-14.5); WBC 10.1 10x3/uL (4.8-10.8)
[2020-12-18 18:43] LABS: ANION GAP 15.5 mmol/L (8-16); CALCIUM 9.5 mg/dL (8.5-10.1); CARBON DIOXIDE 21.4 mmol/L (21.0-32.0); POTASSIUM - SERUM 3.9 mmol/L (3.5-5.1)
[2020-12-18 18:49] LABS: ALBUMIN 4.1 g/dL (3.4-5.0); BILIRUBIN - TOTAL 0.52 mg/dL (0.2-1.3); PROTEIN - SERUM 7.7 g/dL (6.4-8.2)
[2020-12-18] MEDS ORDERED: HYDROCODON-ACE1 EAC7 PO (20:26)
[2020-12-18] MEDS ORDERED: CEPHALEXIN500 M1 PO (20:26)
[2020-12-18] MEDS ORDERED: TORADOL10 MG PO (20:26)
[2020-12-18 20:55] VITALS: BP 142/73
== END 2020-12-18 20:55 | disposition home or self-care (01) ==
LOC: D.ER 17:17
PROVIDERS: Student in an Organized Health Care Education/Training Program
DX: N20.1 Calculus of ureter (principal); N23 Unspecified renal colic; E78.5 Hyperlipidemia, unspecified